=== PATIENT | male | born 1930 | race Caucasian/White ===

== ENCOUNTER → 2016-07-19 | Outpatient (CLI) | payer OTHER, MEDICARE ==
[2016-07-19 08:27] LABS: HEMOGLOBIN A1C 9.82 % (4.2-6.0); MEAN BLOOD GLUCOSE (CALC) 241.006 mg/dL
[2016-07-19 08:33] LABS: CREATININE, URINE 81.8 MG/DL (15-500)
[2016-07-19 08:38] LABS: BILIRUBIN,TOTAL 0.9 mg/dL (0.3-1.2); BUN/CREATININE RATIO 18.88 (6-20); CREATININE 0.9 mg/dL (0.70-1.50); LDL CHOLESTEROL,CALCULATED 53.4 mg/dL; POTASSIUM 4.5 meq/L (3.8-5.2)
== END ==
LOC: LAB 08:04
PROVIDERS: ATTEND Internal Medicine
DX: E11.9 Type 2 diabetes mellitus without complications (principal); E78.5 Hyperlipidemia, unspecified; I10 Essential (primary) hypertension
CPT/HCPCS: 36415; 80053; 80061; 82043; 82550; 83036

== ENCOUNTER → 2016-07-21 | Outpatient (CLI) | payer OTHER, MEDICARE | LOC: MMPC 11:11 | PROVIDERS: ATTEND Internal Medicine | DX: I10 Essential (primary) hypertension (principal); E11.9 Type 2 diabetes mellitus without complications; E78.2 Mixed hyperlipidemia; M48.06 Spinal stenosis, lumbar region | CPT/HCPCS: 99214; G0463 ==

== ENCOUNTER → 2016-07-28 | Outpatient (CLI) | payer OTHER, MEDICARE | LOC: MMPC 09:00 | PROVIDERS: ATTEND Internal Medicine | DX: E11.40 Type 2 diabetes mellitus with diabetic neuropathy, unspecified (principal); Z79.4 Long term (current) use of insulin; I10 Essential (primary) hypertension; E78.5 Hyperlipidemia, unspecified; E66.9 Obesity, unspecified; Z71.3 Dietary counseling and surveillance | CPT/HCPCS: G0108 ==

== ENCOUNTER → 2016-10-18 | Outpatient (CLI) | payer OTHER, MEDICARE ==
[2016-10-18 09:25] LABS: BUN/CREATININE RATIO 21.25 (6-20); CALCIUM 9.2 mg/dL (8.7-10.7); CHOL/HDL RATIO 3.17 RATIO (0-4.0); LDL CHOLESTEROL,CALCULATED 51.8 mg/dL
[2016-10-18 09:28] LABS: HEMOGLOBIN A1C 8.09 % (4.2-6.0)
[2016-10-18 09:31] LABS: CREATININE, URINE 66.1 MG/DL (15-500)
== END ==
LOC: LAB 08:43
PROVIDERS: ATTEND Internal Medicine
DX: E11.9 Type 2 diabetes mellitus without complications (principal); E78.5 Hyperlipidemia, unspecified; I10 Essential (primary) hypertension
CPT/HCPCS: 36415; 80053; 80061; 82043; 82550; 83036

== ENCOUNTER → 2016-10-20 | Outpatient (CLI) | payer OTHER, MEDICARE | LOC: MMPC 11:11 | PROVIDERS: ATTEND Internal Medicine | DX: I10 Essential (primary) hypertension (principal); E11.9 Type 2 diabetes mellitus without complications; R60.9 Edema, unspecified; E66.9 Obesity, unspecified; M48.06 Spinal stenosis, lumbar region | CPT/HCPCS: 99214; G0463 ==

== ENCOUNTER → 2017-01-17 | Outpatient (CLI) | payer OTHER, MEDICARE ==
[2017-01-17 08:20] LABS: HEMOGLOBIN A1C 8.46 % (4.2-6.0)
[2017-01-17 08:28] LABS: CREATININE, URINE 92.9 MG/DL (15-500)
[2017-01-17 08:29] LABS: BUN/CREATININE RATIO 22.5 (6-20); CALCIUM 9.2 mg/dL (8.7-10.7)
== END ==
LOC: LAB 07:30
PROVIDERS: ATTEND Internal Medicine
DX: E11.9 Type 2 diabetes mellitus without complications (principal); Z79.4 Long term (current) use of insulin; I10 Essential (primary) hypertension; R80.9 Proteinuria, unspecified
CPT/HCPCS: 36415; 80048; 82043; 83036

== ENCOUNTER → 2017-01-19 | Outpatient (CLI) | payer OTHER, MEDICARE | LOC: MMPC 11:11 | PROVIDERS: ATTEND Internal Medicine | DX: I10 Essential (primary) hypertension (principal); E11.29 Type 2 diabetes mellitus with other diabetic kidney complication; R80.9 Proteinuria, unspecified; Z79.4 Long term (current) use of insulin | CPT/HCPCS: 99214; G0463 ==